=== PATIENT | male | born 2000 | race Two or more races ===

== ENCOUNTER 2024-07-14 18:54 | Emergency (ER) | payer MEDICAID, SELFPAY ==
--- NOTE | 2024-07-14 19:23 | PD.EDRME ---
Rapid Medical Screening Exam RME Arrival date/time: 07/14/24 18:54 23 year old male present to ED for c/o of medical clearance. pt refused any medical treatment. I have greeted and performed a focused initial assessment of this patient. A comprehensive ED assessment and evaluation of the patient, analysis of all test results, and completion of the medical decision making process will be conducted by additional ED providers. Time Seen by Provider: 07/14/24 19:22
== END 2024-07-14 19:25 | disposition left against medical advice (07) ==
LOC: SERX 19:32
PROVIDERS: Emergency Provider Emergency Medicine
DX: Z02.89 Encounter for other administrative examinations (principal); Z53.29 Procedure and treatment not carried out because of patient's decision for other reasons
CPT/HCPCS: 99281